=== PATIENT | female | born 1990 | race Two or more races ===

== ENCOUNTER 2022-12-05 14:48 | Emergency (ER) | payer OTHER ==
[~2022-12-05] VITALS: Ht 167.6 cm; Wt 91.4 kg
[2022-12-05 15:35] VITALS: BP 110/43
[2022-12-05 16:38] LABS: Albumin 3.3 g/dL (3.4-5.0); Calcium 8.6 mg/dL (8.5-10.1); Potassium 4.2 mmol/L (3.5-5.1)
[2022-12-05 16:43] LABS: BUN/Creatinine Ratio 15.6 (10.0-20.0); Bilirubin, Total 0.3 mg/dL (0.2-1.0); Total Protein 7.6 g/dL (6.4-8.2)
[2022-12-05] MEDS ORDERED: SODIUM CHLORIDE 0.9% 1,000 ML IV ONE (17:00)
[2022-12-05] MEDS ORDERED: ACETAMINOPHEN 500 MG TAB PO ONE (17:00)
[2022-12-05] MEDS ORDERED: ACET1CAP14 PO (18:19)
[2022-12-05] MEDS ORDERED: metFORMIN HYDROCHLORIDE 500 MG TAB PO ONE (18:30)
== END 2022-12-05 19:09 | disposition home or self-care (01) ==
LOC: ER 14:48
DX: M41.9 Scoliosis, unspecified (principal); E11.65 Type 2 diabetes mellitus with hyperglycemia; M54.50 Low back pain, unspecified
CPT/HCPCS: 36415; 72070; 72100; 80053; 82962; 84443; 96360; 99284; J7030

== ENCOUNTER 2022-12-16 16:36 | Emergency (ER) | payer OTHER ==
[~2022-12-16] VITALS: Ht 167.6 cm; Wt 89.6 kg
[~2022-12-16 16:36] MED LIST: ACET1CAP14 PO
[2022-12-16 17:00] VITALS: BP 116/69
[2022-12-16 17:22] LABS: Urine Bacteria FEW /hpf (None Seen); Urine Blood 3+ /uL (Negative); Urine Mucus FEW (None Seen); Urine Specific Gravity 1.017 (1.001-1.035); Urine WBC 3 /hpf (0 - 5)
[2022-12-16] MEDS ORDERED: cefTRIAXone SOD 1,000 MG VL IM ONE (17:45)
[2022-12-16] MEDS ORDERED: NITR-52 PO (18:31)
== END 2022-12-16 20:28 | disposition home or self-care (01) ==
LOC: ER 16:36
DX: N39.0 Urinary tract infection, site not specified (principal); E11.9 Type 2 diabetes mellitus without complications; Z88.6 Allergy status to analgesic agent
CPT/HCPCS: 81001; 96372; 99283; J0696